=== PATIENT | male | born 1955 | race Caucasian/White ===

== ENCOUNTER 2020-11-26 08:15 | Outpatient (CLI) | payer BC, SELFPAY | END 2020-11-26 08:16 | LOC: ANHCOVIDVC 08:15 | PROVIDERS: PCP Internal Medicine | DX: Z23 Encounter for immunization (principal) | CPT/HCPCS: 0001A; 91300 ==

== ENCOUNTER 2020-12-17 08:16 | Outpatient (CLI) | payer BC, SELFPAY | END 2020-12-17 08:17 | disposition home or self-care (01) | LOC: ANHCOVIDVC 08:18 | PROVIDERS: PCP Internal Medicine | DX: Z23 Encounter for immunization (principal) | CPT/HCPCS: 0002A; 91300 ==